=== PATIENT | female | born 1985 | race Caucasian/White ===

== ENCOUNTER 2018-01-22 21:26 | Emergency (ER) | payer OTHER ==
[2018-01-22] MEDS ORDERED: NS 0.9% 1000 ML* 1,000 ML IV ONE (21:38)
[2018-01-22] MEDS ORDERED: Ketorolac INJ* 30 MG/ML 1 ML VIAL IV PUSH ONE (21:38)
[2018-01-22] MEDS ORDERED: Ondansetron INJ* 2 MG/ML VIAL IV ONE (21:38)
[2018-01-22 22:10] LABS: ABS Basophils 0.1 10^3/ul (0-0.2); ABS Eosinophils 0.2 10^3/ul (0-0.6); ABS Lymphocytes 2.8 10^3/ul (1.0-4.8); ABS Monocytes 0.5 10^3/ul (0-0.8); ABS Neutrophils 5.4 10^3/ul (1.5-7.7); ABS Nucleated RBC 0 10^3/ul; Eosinophil % 2.8 % (0-6); Hematocrit 42 % (35-47); Hemoglobin 14.4 g/dl (12.0-16.0); Lymphocyte % 31.2 % (25-47); Mean Corpuscular HGB Conc 34 g/dl (31-36); Mean Corpuscular Hemoglobin 31 pg (27-31); Mean Corpuscular Volume 91 fL (80-97); Mean Platelet Volume 9 um3 (7.4-10.4); Nucleated Red Blood Cells % 0.2; Platelet Count 245 10^3/ul (150-450); Red Blood Count 4.61 10^6/ul (4.0-5.4); Red Cell Distribution Width 13 % (10.5-15); White Blood Count 9.1 10^3/ul (3.5-10.8)
[2018-01-22 22:19] LABS: EGFR Non-African American 77.6 (>60)
[2018-01-22] MEDS ORDERED: Tamsulosin CAP* 0.4 MG PO ONE (22:28)
[2018-01-22 23:27] LABS: Urine Appearance Clear; Urine Blood 3+ (Negative); Urine Color Yellow; Urine Ketones Negative (Negative); Urine Protein Negative (Negative); Urine Specific Gravity 1.016 (1.010-1.030); Urine Urobilinogen Negative (Negative)
[2018-01-22 23:54] VITALS: BP 119/61
--- NOTE | 2018-01-23 01:48 | ED ---
Lorelei Fuller Emily, scribed for Keegan Vo MD on 01/22/18 at 2149 . Abdominal Pain/Female - HPI Summary HPI Summary: This patient is a 33 year old F BIBA to [facility] accompanied by son with a chief complaint of sudden, sharp L flank pain radiating in a band across lower abd that began at 1700. The patient rates the pain 10/10 in severity. Symptoms aggravated by nothing. Symptoms alleviated by nothing. Patient reports nausea and dysuria. Patient denies vomiting and hematuria. Pt reports hx of kidney stones and lithotripsy procedure in 2010. Pt reports currently having IUD. - History of Current Complaint Chief Complaint: EDFlankPain Stated Complaint: LT FLANK PAIN Time Seen by Provider: 01/22/18 21:37 Hx Obtained From: Patient Hx Last Menstrual Period: 01/22/2018 ?: No Onset/Duration: Sudden Onset, Lasting Hours, Still Present Timing: Hours Severity Initially: Severe Severity Currently: Severe Pain Intensity: 10 Pain Scale Used: 0-10 Numeric Location: Flank Radiates: Yes Radiates to: Other - Lower abd Character: Sharp Aggravating Factor(s): Nothing Alleviating Factor(s): Nothing Associated Signs and Symptoms: Positive: Other: - Positive nausea and dysuria. Negative vomiting and hematuria. Allergies/Adverse Reactions: Allergies Allergy/AdvReac Type Severity Reaction Status Date / Time Penicillins Allergy Anaphylatic Verified 01/22/18 21:32 Shock Home Medications: Home Medications Gabapentin CAP(*) [Neurontin 400 mg CAP(*)] 800 mg PO TID 01/22/18 [History Confirmed 01/22/18] Levothyroxine TAB* [Synthroid TAB*] 50 mcg PO DAILY 01/22/18 [History Confirmed 01/22/18] PMH/Surg Hx/FS Hx/Imm Hx Previously Healthy: No Endocrine/Hematology History: Reports: Hx Thyroid Disease Denies: Hx Anticoagulant Therapy History: Reports: Hx Kidney Stones Denies: Hx Kidney Infection Psychiatric History: Reports: Hx Anxiety - Surgical History Surgery Procedure, Year, and Place: - Immunization History Date of Tetanus Vaccine: unk Date of Influenza Vaccine: none Infectious Disease History: No Infectious Disease History: Denies: Traveled Outside the [place] in Last 30 Days - Family History Known Family History: Positive: Unknown - Social History Occupation: Unemployed Lives: With Family Alcohol Use: None Hx Substance Use: No Substance Use Type: Reports: None, Other Substance Use Comment - Amount & Last Used: Used Opiates in the past Smoking Status (MU): Current Some Day Smoker Type: Cigarettes Amount Used/How Often: 1-5 cigarettes per day Review of Systems Positive: Abdominal Pain, Nausea. Negative: Vomiting Positive: dysuria. Negative: hematuria All Other Systems Reviewed And Are Negative: Yes Physical Exam - Summary Physical Exam Summary: Appearance: Well appearing, moderate distress due to discomfort Skin: warm, dry, reflects adequate perfusion Head/face: normal Eyes: EOMI, DYLAN ENT: normal Neck: supple, non-tender Respiratory: CTA, breath sounds present Cardiovascular: RRR, pulses symmetrical Abdomen: non-tender, soft, non-distended, No CVA tenderness on L side Bowel: present Musculoskeletal: normal, strength/ROM intact, no lower extremity edema Neuro: normal, sensory motor intact, A&Ox3 Triage Information Reviewed: Yes Vital Signs On Initial Exam: Initial Vitals Temp Pulse Resp BP Pulse Ox 98.7 F 60 18 149/99 98 01/22/18 21:31 01/22/18 21:31 01/22/18 21:31 01/22/18 21:31 01/22/18 21:31 Vital Signs Reviewed: Yes Diagnostics - Vital Signs Vital Signs Temp Pulse Resp BP Pulse Ox 01/22/18 21:31 98.7 F 60 18 149/99 98 - Laboratory Lab Results: Lab Results 01/22/18 01/22/18 01/22/18 Range/Units 21:50 21:50 21:50 WBC 9.1 (3.5-10.8) 10^3/ul RBC 4.61 (4.0-5.4) 10^6/ul Hgb 14.4 (12.0-16.0) g/dl Hct 42 (35-47) % MCV 91 (80-97) fL MCH 31 (27-31) pg MCHC 34 (31-36) g/dl RDW 13 (10.5-15) % Plt Count 245 (150-450) 10^3/ul MPV 9 (7.4-10.4) um3 Neut % (Auto) 59.8 (38-83) % Lymph % (Auto) 31.2 (25-47) % [place]ter[place] % (Auto) 5.4 (0-7) % Eos % (Auto) 2.8 (0-6) % Baso % (Auto) 0.8 (0-2) % Absolute Neuts (auto) 5.4 (1.5-7.7) 10^3/ul Absolute Lymphs (auto) 2.8 (1.0-4.8) 10^3/ul Absolute Monos (auto) 0.5 (0-0.8) 10^3/ul Absolute Eos (auto) 0.2 (0-0.6) 10^3/ul Absolute Basos (auto) 0.1 (0-0.2) 10^3/ul Absolute Nucleated RBC 0 10^3/ul Nucleated RBC % 0.2 Sodium 136 (133-145) mmol/L Potassium 3.7 (3.5-5.0) mmol/L Chloride 99 L (101-111) mmol/L Carbon Dioxide 30 (22-32) mmol/L Anion Gap 7 (2-11) mmol/L BUN 10 (6-24) mg/dL Creatinine 0.84 (0.51-0.95) mg/dL Est GFR ( Amer) 99.8 (>60) Est GFR (Non-Af Amer) 77.6 (>60) BUN/Creatinine Ratio 11.9 (8-20) Glucose 87 (70-100) mg/dL Lactic Acid 1.2 (0.5-2.0) mmol/L Calcium 10.0 (8.6-10.3) mg/dL Total Bilirubin 0.40 (0.2-1.0) mg/dL AST 45 H (13-39) U/L ALT 55 H (7-52) U/L Alkaline Phosphatase 122 H (34-104) U/L C-Reactive Protein 15.09 H (< 5.00) mg/L Total Protein 7.7 (6.4-8.9) g/dL Albumin 4.6 (3.2-5.2) g/dL Globulin 3.1 (2-4) g/dL Albumin/Globulin Ratio 1.5 (1-3) Lipase 49 (11.0-82.0) U/L Beta HCG, Quant < 0.60 mIU/mL Urine Color Urine Appearance Urine pH (5-9) Ur Specific [place] (1.010-1.030) Urine Protein (Negative) Urine Ketones (Negative) Urine Blood (Negative) Urine Nitrate (Negative) Urine Bilirubin (Negative) Urine Urobilinogen (Negative) Ur Leukocyte Esterase (Negative) Urine WBC (Auto) (Absent) Urine RBC (Auto) (Absent) Ur Squamous Epith Cells (Absent) Urine Bacteria (Absent) Urine Glucose (Negative) 01/22/18 Range/Units 23:04 WBC (3.5-10.8) 10^3/ul RBC (4.0-5.4) 10^6/ul Hgb (12.0-16.0) g/dl Hct (35-47) % MCV (80-97) fL MCH (27-31) pg MCHC (31-36) g/dl RDW (10.5-15) % Plt Count (150-450) 10^3/ul MPV (7.4-10.4) um3 Neut % (Auto) (38-83) % Lymph % (Auto) (25-47) % [place] % (Auto) (0-7) % Eos % (Auto) (0-6) % Baso % (Auto) (0-2) % Absolute Neuts (auto) (1.5-7.7) 10^3/ul Absolute Lymphs (auto) (1.0-4.8) 10^3/ul Absolute Monos (auto) (0-0.8) 10^3/ul Absolute Eos (auto) (0-0.6) 10^3/ul Absolute Basos (auto) (0-0.2) 10^3/ul Absolute Nucleated RBC 10^3/ul Nucleated RBC % Sodium (133-145) mmol/L Potassium (3.5-5.0) mmol/L Chloride (101-111) mmol/L Carbon Dioxide (22-32) mmol/L Anion Gap (2-11) mmol/L BUN (6-24) mg/dL Creatinine (0.51-0.95) mg/dL Est GFR ( Amer) (>60) Est GFR (Non-Af Amer) (>60) BUN/Creatinine Ratio (8-20) Glucose (70-100) mg/dL Lactic Acid (0.5-2.0) mmol/L Calcium (8.6-10.3) mg/dL Total Bilirubin (0.2-1.0) mg/dL AST (13-39) U/L ALT (7-52) U/L Alkaline Phosphatase (34-104) U/L C-Reactive Protein (< 5.00) mg/L Total Protein (6.4-8.9) g/dL Albumin (3.2-5.2) g/dL Globulin (2-4) g/dL Albumin/Globulin Ratio (1-3) Lipase (11.0-82.0) U/L Beta HCG, Quant mIU/mL Urine Color Yellow Urine Appearance Clear Urine pH 5.0 (5-9) Ur Specific [place] 1.016 (1.010-1.030) Urine Protein Negative (Negative) Urine Ketones Negative (Negative) Urine Blood 3+ A (Negative) Urine Nitrate Negative (Negative) Urine Bilirubin Negative (Negative) Urine Urobilinogen Negative (Negative) Ur Leukocyte Esterase Trace A (Negative) Urine WBC (Auto) 1+(6-10/hpf) A (Absent) Urine RBC (Auto) Trace(0-2/hpf) (Absent) Ur Squamous Epith Cells Present A (Absent) Urine Bacteria Absent (Absent) Urine Glucose Negative (Negative) Result Diagrams: 01/22/18 21:50 01/22/18 21:50 Lab Statement: Any lab studies that have been ordered have been reviewed, and results considered in the medical decision making process. - CT Abdomen and Pelvis CT CT Interpretation Completed By: Radiologist - Abdomen and pelvis CT reveals, per radiologist, there is a distal let ureteral stone at the level of the ureterovesical junction measuring 4.5 mm. Associated mild to moderate hydronephrosis and uretectasis with mild perinephric and periureteral stranding. Several nonobstructing stones in the right kidney the largest measuring 5 mm. The liver is enlarged with fatty changes. The unenhanced upper abdominal visceral organs are otherwise unremarkable. There is no bowel distention. A normal appendix is visualized. An IUD is again noted which appears to be normally positioned within the uterus. No intra-abdominal free air or free fluid. ED physician has reviewed this radiology report. Re-Evaluation - Re-Evaluation First Eval Re-Evaluation Time: 23:30 Change: Improved Comment: Pt reports feeling much better. Abdominal Pain Fem Course/Dx - Course Course Of Treatment: <5mm distal stone. Classic renal colic presentation. Hx of same. Tx here with full relief. Flomax prior to discharge. F/U PCP. - Diagnoses Differential Diagnosis: Positive: Ovarian Cyst, Pancreatitis, Renal Colic, Urinary Tract Infection Provider Diagnoses: Renal colic on left side, Ureterolithiasis Discharge - Discharge Plan Condition: Good Disposition: HOME Prescriptions: Naproxen [Naproxen 500 mg] 500 mg PO BID PRN #10 tablet PRN Reason: Pain Ondansetron [Zofran Odt] 4 mg PO TID PRN #10 tab.rapdis PRN Reason: Nausea Tamsulosin HCl [Flomax] 0.4 mg PO DAILY #3 cap.er.24h Patient Education Materials: Renal Colic (ED) Referrals: Carlton cMclain, [employer] [Primary Care Provider] - Additional Instructions: Drink plenty of fluids. Return with uncontrolled pain, vomiting, fever, worse or other concerns. Call Thursday for an appt with your doctor. The documentation as recorded by the Lorelei ruano Emily accurately reflects the service I personally performed and the decisions made by , Keegan Vo MD.
--- NOTE | 2018-01-23 07:31 | RAD ---
CLINICAL HISTORY: Flank pain COMPARISON: September 28, 2016 TECHNIQUE: Multiple contiguous axial CT scans were obtained of the abdomen and pelvis, without intravenous contrast enhancement. Coronal and sagittal multiplanar reformations are submitted for review. Oral contrast was not administered. FINDINGS: The study is limited by the lack of intravenous contrast. This limits evaluation of the solid organs and vasculature. LUNG BASES: The lung bases are clear. LIVER: The liver is diffusely low in attenuation compared to the spleen. There are no focal hepatic parenchymal masses. The liver measures 20 cm in long axis. BILE DUCTS: There is no intrahepatic or extrahepatic biliary dilatation. GALLBLADDER: The gallbladder is normal, without pericholecystic inflammatory change. PANCREAS: The pancreas is normal, without mass or ductal dilatation. SPLEEN: Normal in size and appearance. UPPER GI TRACT: Evaluation of the gastrointestinal tract is limited by incomplete gastric distention. The upper GI tract is unremarkable. SMALL BOWEL AND MESENTERY: The small bowel is normal in contour, course, and caliber. There is no obstruction or dilatation. COLON: The colon is normal in contour, course, caliber. There is no pericolonic inflammatory change. There is a tubular, vermiform, hollow viscus that is blind ending, and originates from the cecum, consistent with a normal appendix. There is no periappendiceal inflammatory change. This is best seen on axial images 113 through 127. ADRENALS: Normal bilaterally. KIDNEYS: There are multiple right renal calyceal stones measuring up to 0.5 cm in size. There is a 0.5 cm left UVJ stone with mild pelviectasis and moderate hydroureter on the left. BLADDER: As noted above, there is a left UVJ stone. The bladder is incompletely distended but is otherwise grossly normal. PELVIC ORGANS: The uterus and adnexa are grossly normal for technique. An IUD is noted AORTA: The aorta is normal. IVC: Unremarkable LYMPH NODES: There is no lymphadenopathy by size criteria. ABDOMINAL WALL: There is no evidence for abdominal wall hernia. BONES AND SOFT TISSUES: Unremarkable OTHER: None IMPRESSION: 1. BILATERAL NEPHROLITHIASIS INCLUDING A 0.5 CM LEFT UVJ STONE WITH MILD LEFT HYDRONEPHROSIS. 2. HEPATOMEGALY WITH FATTY INFILTRATION OF THE LIVER.
== END 2018-01-22 23:55 | disposition home or self-care (01) ==
LOC: ED 21:26
DX: N13.2 Hydronephrosis with renal and ureteral calculous obstruction (principal); K76.0 Fatty (change of) liver, not elsewhere classified; F17.210 Nicotine dependence, cigarettes, uncomplicated; Z88.0 Allergy status to penicillin
CPT/HCPCS: 36415; 74176; 80053; 81003; 81015; 83605; 83690; 84702; 85025; 86140; 87086; 96361; 96374; 96375; 99283; J1885; J2405

== ENCOUNTER 2019-07-08 19:20 | Emergency (ER) | payer OTHER ==
[2019-07-08 19:38] VITALS: BP 132/72
--- NOTE | 2019-07-08 20:08 | UC ---
[facility] HPI - HPI Summary HPI Summary: left upper molar pain and abscess on gum---has a dental appointment in 2 weeks - History of Current Complaint Chief Complaint: UCDentalProblem Stated Complaint: TOOTH PAIN Time Seen by Provider: 07/08/19 19:44 Hx Obtained From: Patient Hx Last Menstrual Period: IUD ?: No Onset/Duration: Sudden Onset, Lasting Days, Still Present Pain Intensity: 5 Pain Scale Used: 0-10 Numeric Aggravating Factor(s): Chewing Alleviating Factor(s): Nothing Related History: Previous Dental Care on Same Tooth, Swelling - Allergies/Home Medications Allergies/Adverse Reactions: Allergies Allergy/AdvReac Type Severity Reaction Status Date / Time Penicillins Allergy Anaphylatic Verified 01/22/18 21:32 Shock Home Medications: Home Medications Methadone TAB* [Dolophine TAB*] 07/08/19 [History] PMH/Surg Hx/FS Hx/Imm Hx Previously Healthy: No Endocrine History: Hypothyroidism Psychological History: Anxiety, Other 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 lithotripsy - Family History Known Family History: Positive: Unknown, Other - cancer (patient is unsure specifically) - Social History Occupation: Unemployed Lives: With Family Alcohol Use: None Substance Use Type: None Substance Use Comment - Amount & Last Used: Used Opiates in the past Smoking Status (MU): Light Every Day Tobacco Smoker Type: Cigarettes Amount Used/How Often: 1-5 cigarettes per day Household Exposure Type: Cigarettes - Immunization History Most Recent Influenza Vaccination: 10/05 Most Recent Tetanus Shot: unknown Most Recent Pneumonia Vaccination: none Review of Systems All Other Systems Reviewed And Are Negative: Yes Constitutional: Positive: Negative Skin: Positive: Negative Eyes: Positive: Negative ENT: Positive: Dental Pain Respiratory: Positive: Negative Cardiovascular: Positive: Negative Gastrointestinal: Positive: Negative Genitourinary: Positive: Negative Motor: Positive: Negative Neurovascular: Positive: Negative Musculoskeletal: Positive: Negative Neurological: Positive: Negative Is Patient Immunocompromised?: No Physical Exam Triage Information Reviewed: Yes Appearance: Well-Appearing, No Pain Distress, Obese Vital Signs: Initial Vital Signs Temp 98.1 F 07/08/19 19:28 Pulse 70 07/08/19 19:28 Resp 16 07/08/19 19:28 BP 132/72 08/16/19 19:28 Pulse Ox 97 07/08/19 19:28 Vital Signs Reviewed: Yes Eye Exam: Normal Eyes: Positive: Conjunctiva Clear ENT Exam: Normal ENT: Positive: Normal ENT inspection, Hearing grossly normal, Pharynx normal, TMs normal, Dental tenderness, Uvula midline. Negative: Nasal congestion, Tonsillar swelling, Trismus, Muffled voice, Hoarse voice, Sinus tenderness Dental Exam: Other Dental: Positive: Percussion Tenderness @ - left upper molars, Abscess @ - left upper gum Neck exam: Normal Neck: Positive: Supple, Nontender, No Lymphadenopathy Respiratory Exam: Normal Respiratory: Positive: Chest non-tender, No respiratory distress, No accessory muscle use Cardiovascular Exam: Normal Cardiovascular: Positive: RRR, Pulses Normal, Brisk Capillary Refill Musculoskeletal Exam: Normal Musculoskeletal: Positive: Strength Intact, ROM Intact, No Edema Neurological Exam: Normal Neurological: Positive: Alert, Muscle Tone Normal Psychological Exam: Normal Skin Exam: Normal Dental Complaint Course/Dx - Course Course Of Treatment: clindamycin, warm water sinces, pain control follow with dentist as planned - Differential Dx/Diagnosis Provider Diagnosis: Dental abscess Discharge - Sign-Out/Discharge Documenting (check all that apply): Patient Departure All imaging exams completed and their final reports reviewed: No Studies - Discharge Plan Condition: Stable Disposition: HOME Prescriptions: Clindamycin Cap(NF) [Clindamycin Cap 300 mg Cap(NF)] 300 mg PO Q6H 10 Days #40 cap Hydrocodone/Acetaminophen [Hydrocodone-Acetamin 5-325 mg] 1 each PO Q6HR PRN #5 tablet MDD 4 PRN Reason: Pain - Moderate Patient Education Materials: Dental Abscess (ED), Toothache (ED) Referrals: Anette Interiano MD [Primary Care Provider] - Additional Instructions: Follow with dentist as planned - Billing Disposition and Condition Condition: STABLE Disposition: Home
== END 2019-07-08 20:10 | disposition home or self-care (01) ==
LOC: UCEAST 19:20
DX: K04.7 Periapical abscess without sinus (principal); E03.9 Hypothyroidism, unspecified; F41.9 Anxiety disorder, unspecified; F17.210 Nicotine dependence, cigarettes, uncomplicated; Z88.0 Allergy status to penicillin
CPT/HCPCS: 99212; G0463